=== PATIENT | female | born 1950 | race Caucasian/White ===

== ENCOUNTER → 2018-05-13 10:10 | Outpatient (CLI) | payer MEDICARE, SELFPAY ==
[2018-05-13 12:32] LABS: Anion Gap 6 (5-15); BUN 13 mg/dL (7-18); BUN/Creat Ratio 16.4 RATIO (10-20); Calcium,Total 8.4 mg/dL (8.5-10.1); Chloride 107 mmol/L (98-107); Cholesterol 162 mg/dL (200); Creatinine, Serum 0.79 mg/dL (0.55-1.02); EST Glomerular Filtration Rate 77 mL/min (>60); Est Glom Filt Rate - Afr Amer 93 mL/min (>60); Glucose 108 mg/dL (74-106); High Density Lipoprotein 36 mg/dL; Sodium Level 142 mmol/L (136-145); Thyroid Stim Hormone (TSH) 1.18 uIU/mL (0.358-3.74); Triglycerides 167 mg/dL; Very Low Density Lipoprotein 33 mg/dL (5-40)
[2018-05-13 12:39] LABS: Microalbumin,Random Urine 6.2 mg/L (NO RANGE EST.); Microalbumin:Creatinine Ratio 5.2 mg/g CRE (<30 mg/g CRE)
== END ==
PROVIDERS: Family Provider Family Medicine; PCP Family Medicine; Visit Provider Family Medicine
DX: I10 Essential (primary) hypertension (principal); E78.00 Pure hypercholesterolemia, unspecified
CPT/HCPCS: 36415; 80048; 80061; 82043; 82570; 84443

== ENCOUNTER → 2019-04-30 | Outpatient (CLI) | payer MEDICARE, SELFPAY ==
[2019-04-30 12:15] LABS: ALB/GLOB Ratio 1.1 RATIO (0.9-2.4); AST(SGOT) 19 U/L (15-37); Alanine Aminotransfer ALT/SGPT 33 U/L (13-56); Albumin, Serum 3.6 g/dL (3.2-5.0); Alkaline Phosphatase 95 U/L (45-117); Anion Gap 5 (5-15); BUN 15 mg/dL (7-18); BUN/Creat Ratio 18.3 RATIO (10-20); Calcium,Total 8.8 mg/dL (8.5-10.1); Chloride 107 mmol/L (98-107); Creatinine, Serum 0.82 mg/dL (0.55-1.02); EST Glomerular Filtration Rate 74 mL/min (>60); Est Glom Filt Rate - Afr Amer 89 mL/min (>60); Globulin 3.3 g/dL (2.2-4.2); Glucose 111 mg/dL (74-106); Potassium 3.9 mmol/L (3.5-5.1); Protein, Total 6.9 g/dL (6.4-8.2); Sodium Level 140 mmol/L (136-145)
== END | disposition home or self-care (01) ==
LOC: MFPLAB 09:29
PROVIDERS: Family Provider Family Medicine; PCP Family Medicine; Referring Provider Family Medicine; Visit Provider Family Medicine
DX: I10 Essential (primary) hypertension (principal)
CPT/HCPCS: 36415; 80053

== ENCOUNTER → 2019-11-25 09:30 | Outpatient (CLI) | payer MEDICARE, SELFPAY ==
[2019-11-25 10:30] LABS: Absolute Lymphocyte Count 2.18 X10^3/uL (0.83-4.51); Absolute Neutrophil Count 4.6 X10^3/uL (2.0-7.7); Basophil# 0.04 X10^3/uL; Basophil% 0.5 % (0-1); Eosinophils% 2.6 % (0-5); Hematocrit 52.4 % (37-47); Hemoglobin 17.2 g/dL (12.0-15.0); Lymphocyte # 2.18 X10^3/ul (4.0); Lymphocyte % 28.2 % (19-41); Mean Corp Hgb Conc 32.8 g/dL (32-36); Mean Corpuscular Hgb 32.2 pg (27.0-32.0); Mean Corpuscular Volume 98.1 fL (81-99); Mean Platelet Vol. 10.4 fl (6.2-12.0); Monocyte# 0.66 X10^3/uL; Monocyte% 8.5 % (0-10); NRBC Flagged by Analyzer 0 % (0-5); Neutrophil # 4.63 X10^3/uL (2.7-7.7); Neutrophil % 59.9 % (47-70); Platelet Count 159 K/mm3 (150-450); RBC Distribution Width CV 12.4 % (11.6-14.6); RBC Distribution Width SD 45.1 fl (35.1-43.9); Red Blood Count 5.34 M/mm3 (4.2-5.4); White Blood Count 7.7 K/mm3 (4.4-11.0)
[2019-11-25 10:58] LABS: ALB/GLOB Ratio 0.9 RATIO (0.9-2.4); AST(SGOT) 18 U/L (15-37); Alanine Aminotransfer ALT/SGPT 34 U/L (13-56); Albumin, Serum 3.4 g/dL (3.2-5.0); Alkaline Phosphatase 88 U/L (45-117); Anion Gap 5 (5-15); BUN 13 mg/dL (7-18); BUN/Creat Ratio 14.4 RATIO (10-20); Calcium,Total 9.4 mg/dL (8.5-10.1); Chloride 109 mmol/L (98-107); EST Glomerular Filtration Rate 66 mL/min (>60); Est Glom Filt Rate - Afr Amer 80 mL/min (>60); Globulin 3.9 g/dL (2.2-4.2); Glucose 118 mg/dL (74-106); Potassium 3.9 mmol/L (3.5-5.1); Protein, Total 7.3 g/dL (6.4-8.2); Sodium Level 142 mmol/L (136-145); T4 Free Direct 0.93 ng/dL (0.76-1.46); Thyroid Stim Hormone (TSH) 2.21 uIU/mL (0.358-3.74)
[2019-11-26 16:42] LABS: DHEA Sulfate 37.7 ug/dL (20.4-186.6)
== END ==
PROVIDERS: PCP Family Medicine; Referring Provider Family Medicine; Visit Provider Family Medicine
DX: E03.9 Hypothyroidism, unspecified (principal); R79.89 Other specified abnormal findings of blood chemistry; I10 Essential (primary) hypertension; Z72.0 Tobacco use
CPT/HCPCS: 36415; 80053; 82627; 84403; 84439; 84443; 85025; 82626

== ENCOUNTER → 2020-05-24 12:19 | Outpatient (CLI) | payer MEDICARE, SELFPAY ==
--- NOTE | 2020-05-24 12:28 | BD_ITS ---
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 COMPARISON: None. FINDINGS: Lumbar Spine (L1-L4): g/cm2 (0.998) / T-score (-1.4) / Z-score (0.2) Findings are suggestive of osteopenia with a low fracture risk. Left Femur Total: g/cm2 (0.956) / T-score (-0.4) / Z-score (1.0) Left Femoral Neck: g/cm2 (0.877) / T-score (-1.2) / Z-score (0.5) Right Femur Total: g/cm2 (0.967) / T-score (-0.3) / Z-score (1.1) Right Femoral Neck: g/cm2 (0.886) / T-score (-1.1) / Z-score (0.6) BD/Dexa Bone Density Study IMPRESSION: The patient is considered osteopenic as outlined below according to World Martin Organization (WHO) criteria with a low fracture risk. Reference Information: The T-score is the number of standard deviations above or below the standard which is normal for young adults at their peak bone mineral density. The World Health Organization (WHO) interprets the T-scores as follows: Above -1 Normal bone density Between -1 and -2.5 Osteopenia Equal to / or below -2.5 Osteoporosis As a practical clinical guideline, osteopenia may be graded as follows: Mild -1 through -1.5 Moderate -1.6 through -2.0 Severe -2.1 through -2.4 The Z-score is the number of standard deviations above or below age-matched controls. A Z-score of less than -1.5 would be considered abnormal. References: 1. NIH Osteoporosis and Related Bone Diseases http://www.osteo.org 2. International Society for Clinical Densitometry http://www.iscd.org 3. National Osteoporosis Foundation http://www.nof.org Electronically Signed: Luis Soler, at 8:45 EDT , Service support ,
--- NOTE | 2020-05-24 13:12 | CT_ITS ---
STUDY: LOW DOSE CT LUNG CANCER SCREENING REASON FOR EXAM: Female, 69 years old. TOBACCO USE, 1 PPD X 45 YRS. RADIATION DOSAGE (If Supplied By Facility): CTDIvol = ( 4.02 ) mGy, DLP = ( 127.37 ) mGycm TECHNIQUE: No contrast was administered. Low dose technique was utilized (average mAS-38 and kVp 120). 1.25 mm axial source images with a slice interval of 1.25-mm were reconstructed in lung windows. 2.5 mm axial source images with a slice interval of 2.5-mm were reconstructed in lung windows. 5.0 mm axial source images with a slice interval of 5.0-mm were reconstructed in soft tissue windows. Nodule measured using lung windows on PACS and/or independent workstation with automated measurement of minimum and maximum diameter. Nodule measurement reported as average diameter rounded to the nearest whole number. Growth is defined as an increase ins size of greater than 1.5 mm. COMPARISON: None. Emphysema: No suspicious nodules are seen. There is evidence of emphysematous changes with multiple bolus formation. The largest measures 4.7 cm x 9.2 cm and is within the right middle lobe Aorta: Atherosclerotic calcification of the aortic arch. Coronary arteries: Unremarkable Mediastinal nodes: Small mediastinal lymph nodes. Other chest and abdominal findings: CT/Low Dose CT Lung Screening IMPRESSION: Lung-RADS category 2 - Continue annual screening with LDCT in 12 months. IMPORTANT NOTES FOR USE: ACR Lung-RADS Version 1.0 Assessment Categories Release Date: February 08, 2014 Category: Coded 0-4 bases on nodule(s) with highest degree of suspicion. Negative screen is defined as categories 1 and 2; a positive screen is defined as categories 3 and 4. Category 3 and 4A nodules that are unchanged on interval CT should be coded as category 2, and individuals returned to screening in 12 months. Category 4X: Category 3 or 4 nodules with additional imaging findings that increase the suspicion of lung cancer, such as spiculation, GGN that doubles in size in 1 year, enlarged lymph notes, etc. Category Modifiers: S (significant finding unrelated to lung cancer) and C (prior history of treated lung cancer) may be added to the 0-4 Lung-RADS Electronically Signed: Luis Soler, at 14:24 EDT , Service support ,
== END ==
PROVIDERS: PCP Family Medicine; Referring Provider Family Medicine; Visit Provider Family Medicine
DX: Z00.00 Encounter for general adult medical examination without abnormal findings (principal); Z78.0 Asymptomatic menopausal state; Z87.891 Personal history of nicotine dependence
CPT/HCPCS: 77080; G0297

== ENCOUNTER → 2020-06-14 15:15 | Outpatient (CLI) | payer MEDICARE, SELFPAY ==
--- NOTE | 2020-06-14 15:38 | BI_ITS ---
MAMMOGRAPHY - BILATERAL SCREENING REASON FOR EXAM: Female, 69 years old. Routine annual screening examination. PERTINENT HISTORY: Sister with breast cancer. History of remote bilateral excisional breast biopsies. TECHNIQUE: Digital bilateral breast franci (3D mammographic acquisition) in the CC and MLO projections. 2-D mediolateral oblique (MLO) and craniocaudad (CC) views of both breasts were obtained. CAD: Full Field Digital Mammography with Computer Added Detection was performed. COMPARISON: No comparison mammograms available at this time. If any prior films become available, an addendum to this report can be generated. FINDINGS: Breast Composition: There are scattered areas of fibroglandular density. There are no dominant masses or suspicious calcifications. Small bilateral benign appearing axillary lymph nodes. No other significant abnormalities are identified. BI/SCREEN MAMM (CAD) W/FRANCI BILAT IMPRESSION: Negative screening mammogram. Yearly followup mammogram recommended. (A) ASSESSMENT CATEGORY: BIRADS Category 2: Benign. A letter regarding these results will be sent to the patient by the facility within 30 days. Approximately 10% of breast cancers are not detected by mammography. A normal mammogram should not delay biopsy of a clinically suspicious abnormality. [id number] Electronically Signed: Luis Soler, at 8:39 EDT , Service support ,
== END ==
PROVIDERS: PCP Family Medicine; Referring Provider Family Medicine; Visit Provider Family Medicine
DX: Z00.00 Encounter for general adult medical examination without abnormal findings (principal); Z12.31 Encounter for screening mammogram for malignant neoplasm of breast
CPT/HCPCS: 77063; 77067

== ENCOUNTER 2020-07-25 07:55 | Day surgery (SDC) | payer MEDICARE, SELFPAY ==
[2020-07-25] VITALS (7 sets, daily range): BP systolic 64–140; BP diastolic 37–90; PULSE 73–83; RESP 16–18; TEMP 36.1–36.6; O2SAT 90–95; BMI 38.0
[2020-07-25] MEDS: Lactated Ringers 1,000 ML 100 ML IV (08:38)
--- NOTE | 2020-07-25 09:00 | COLBX_PTH ---
PATIENT: BHANU RUBY LOC: EN U#:[id number] AGE/SX: 69/F ROOM: RE07/25/[address]: Dr. Morteza Cabral MD : 1950 BED: DIS: 07/25/2020 SPEC #: [id number] RECD: 07/25/20 11:52 STATUS: GERMAN REAle #: [id number] ANAYA: 07/25/20 09:[address]: Morteza Cabral DEPT: SURGICAL PATHOLOGY RECD BY: Lasahe Valdivia ENTERED: 07/25/20 12:17 SP TYPE: COLON BX OTHR DR: Dr. Guy Phoenix MD Tissues: A - Cecum, NOS B - Rectum, NOS Procedures: Surgery Specimen Level IV HEADER OPERATION: Colonoscopy - open access (MAC) PRE-OP DIAGNOSIS: Screening TISSUE SUBMITTED: A - Cecum polyp - snare and biopsy forceps, B - Rectal polyp biopsy MICROSCOPIC DIAGNOSIS A. Cecal polyp, biopsy: Fragments of tubular adenoma. B. Rectal polyp, biopsy: Fragments of hyperplastic polyp. AM:che 07/26/20 MICROSCOPIC DESCRIPTION Slides are reviewed. GROSS DESCRIPTION A - Received in fixative is one container labeled with the patient's name and designated cecal polyp. The specimen consists of multiple irregular fragments of light davies soft tissue that in aggregate measure 2 x 0.6 x 0.1 cm. The specimen is totally submitted in one cassette. B - Received in fixative is one container labeled with the patient's name and designated rectal polyp. The specimen consists of multiple irregular fragments of light davies soft tissue that in aggregate measure 1.2 x 0.3 x 0.1 cm. The specimen is totally submitted in one cassette. / AM:che 07/25/20 TC:5 CPT: 08648 x2
--- NOTE | 2020-07-25 09:04 | H&P.OPEN ---
History of Present Illness Date of Admission: 07/25/20 The patient is a 69 year old F who presents for screening colonoscopy. It is been 10 years since her last colonoscopy. This was done in [facility]. Past Medical/Surgical History - Planned Operation Planned Operative Procedure/s: cscope open access Date of Operative Procedure: 07/25/20 Permit Signed: No S.O.S: No Is This Patient Having a Total Joint: No - Previous Hospitalizations/Surgeries HX Hospitalizations: No HX of Surgeries: diag laparotomy. cscope Any Problems With Anesthesia: No You/Your Family Experience Fever (Hyperthermia) With Anes: No Cholinesterase deficiency: No - Cardiovascular Hx Chest Pain within Last 2 months: No Hx of Irregular Heartbeat and/or Afib: No Hx Heart Attack: No Hx Congestive Heart Failure: No Hx Rheumatic Fever: No Hx Hypertension: Yes - controlled with med Hx Internal Defibrillator: No Hx Pacemaker: No Hx Cardiac Catheterization: No Hx Cardiac Surgery/Stents/Etc.: No Hx Stress Test: No HX Edema: No Hx Pain in Legs when Walking/Leg Cramps: No - Respiratory Chronic Cough: No HX of Shortness of Breath: Yes - sob with 2 flights of stairs Hoarseness: No Hx Chronic Obstructive Pulmonary Disease (COPD): No Hx Asthma: No - patient is to follow with pulmonalogist Hx Emphysema: No Hx Sleep Apnea: No Hx Oxygen Use at Home: No Hx Respiratory Tract Infection/Cold (presently): No Do You Snore Loudly (louder than talking or can be heard): No Do You Often Feel Tired/ Fatigued/ Sleepy Dring Daytime?: Yes Has Anyone Observed You Stop Breathing During Sleep?: No Result (for STOP score): Positive Hx Smoking: Yes - 1ppd for 50 yrs Smoking Status: Current every day smoker - Gastrointestinal Hx Gastroesophageal Reflux: No Hx Gastrointestinal Disorders: No Hx Gastrointestinal Bleed: No Hx Ulcer: No Hx Hiatal Hernia: No Difficulty Chewing/Swallowing: No Recent Onset of Swallowing Problems: No Special diet followed at home: No Hx Unplanned Weight Loss of 20#: No HX Unplanned Weight Gain of 20#: No - Neurological Hx Seizures: No HX Syncope/Blackout Spells/Unconsciousness: No Hx CVA/Stroke: No Hx Transient Ischemic Attacks (TIA): No Hx Multiple Sclerosis: No Hx Parkinson's Disease: No Hx Head/Neck Injury: No Hx Headaches: No Hx Back Injury/Pain: No Recent Onset of Speech Difficulty: No Restless Legs: No Does patient have nerve stimulator: No Patient instructed to have device shut off: No Rep notified?: No - Blood Disorder Hx Leukemia: No Bleeding Tendencies: No Hx Deep Vein Thrombosis: No Hx High Cholesterol: Yes - on med Blood Transmitted Disease: No Hx Hepatitis: No Hx Cirrhosis: No Hx Anemia: No Hx Blood Disorders: No - Reproduction : No Is Patient Lactating: No Hx Hysterectomy: No Hx Tubal Ligation: No Are You Post Menopause: Yes - Genitourinary Hx Renal Disease: No - Musculoskeletal Hx Arthritis: No Hx Rheumatoid Arthritis: No Hx Gout: No Recent Onset of an Orthopedic Problem: No - Endocrine Hx Diabetes: No Thyroid Disease: Yes - on med Hx Steroid Therapy: No - Psycho/Social Hx Substance Use: No Hx Alcohol Use: Yes - occ Hx Anxiety: Yes - on med Hx Depression: Yes - on med Mental Illness: No Hx Dementia: No - Miscellaneous Hx Cancer: No Recent Exposure to Contagious Disease: No Active MRSA: No Hx of C-Diff: No Any Loose Teeth: No - implants Allergies Penicillins Allergy (Verified 07/25/20 08:21) Hives - Discharge Is Pt Admitted From a Care Home, or a Fdc: No After D/C, Where Do you Plan to Go: Return Home - From the PAT History Number of Risk Factors: 4 - Physical Exam Vitals/I&O's: Vital Signs Temp Pulse Resp BP Pulse Ox 97.8 F 83 18 140/90 H 93 07/25/20 08:23 07/25/20 08:23 07/25/20 08:23 07/25/20 08:23 07/25/20 08:23 Oxygen Delivery Method Room Air Weight: 207 lb 14.334 oz Body Mass Index (BMI) 38.0 General: Alert, Oriented x3 Lungs: Clear to auscultation Cardiovascular: Regular rate, Regular Rhythm, No murmurs Abdomen: Bowel Sounds Present, Soft, Non Tender, Non-Distended Current Medications Lactated Ringer's () 1,000 mls @ 100 mls/hr IV .Q10H ANTIONE Last Admin: 07/25/20 08:38 Dose: 100 mls/hr Documented by: Assessment/Plan Assessment: Screening colonoscopy Plan: We will do a colonoscopy Surgery Risks - Colonoscopy Risks Include but are not Limited To: Risks include but are not limited to: Bleeding, perforation requiring further surgery, inability to complete colonoscopy requiring barium enema.
--- NOTE | 2020-07-25 09:45 | OP.CCLET_ITS ---
07/25/2020 Guy Phoenix [address] [place] [address] Re : Colonoscopy procedure for Mariaelena Martinez Dear Dr. Phoenix This procedure was performed on Saturday, July 25, 2020. My impressions and recommendations are as follows: Impressions : - One 10 mm polyp in the cecum, removed with a hot snare. Resected and retrieved. - Two 2 to 5 mm polyps in the rectum, removed with a jumbo cold forceps. Resected and retrieved. - The examination was otherwise normal. Recommendations : - Discharge patient to home. - Resume previous diet. - Continue present medications. - Await pathology results. - Repeat colonoscopy in 3 years for surveillance of multiple polyps. She had quite a few diminutive polyps in the rectum that I am probably leaning on wanting to do a colonoscopy far sooner than 3 years maybe even in a year's time. - Return to my office in 1 week. My findings are described in the full procedure note, which is enclosed. If I can be of further assistance, please feel free to contact me at Doctor phone number(s): , Fax: [phone], Work: . Sincerely, MD Morteza Lerma MD 07/25/2020 9:44:40 AM This report has been signed electronically.
--- NOTE | 2020-07-25 09:45 | OP.COLON_ITS ---
Patient Name: Mariaelena Martinez Procedure Date: 07/25/2020 9:04 AM Date of : 1950 Age: 69 Procedure: Colonoscopy Indications: Screening for colorectal malignant neoplasm Providers: Morteza Cabral MD Referring MD: Guy Phoenix Medicines: See the Anesthesia note for documentation of the administered medications Patient Profile: This is a 69 year old female. Refer to note in patient chart for documentation of history and physical. Last Colonoscopy: more than 10 years ago. Complications: No immediate complications. Procedure: Pre-Anesthesia Assessment: - Prior to the procedure, a History and Physical was performed, and patient medications and allergies were reviewed. The patient's tolerance of previous anesthesia was also reviewed. The risks and benefits of the procedure and the sedation options and risks were discussed with the patient. All questions were answered, and informed consent was obtained. Prior Anticoagulants: The patient has taken no previous anticoagulant or antiplatelet agents. ASA Grade Assessment: II - A patient with mild systemic disease. After reviewing the risks and benefits, the patient was deemed in satisfactory condition to undergo the procedure. After I obtained informed consent, the scope was passed under direct vision. Throughout the procedure, the patient's blood pressure, pulse, and oxygen saturations were monitored continuously. The colonoscope was introduced through the anus and advanced to the cecum, identified by appendiceal orifice and ileocecal valve. The colonoscopy was performed without difficulty. The patient tolerated the procedure well. The quality of the bowel preparation was good. Scope In: 9:15:28 AM Scope Withdrawal Time 0 hours 18 minutes 54 seconds Scope Out: 9:36:39 AM Total Procedure Duration Time 0 hours 21 minutes 11 seconds Findings: A 10 mm polyp was found in the cecum. The polyp was sessile. The polyp was removed with a hot snare. Resection and retrieval were complete. Two sessile polyps were found in the rectum. The polyps were 2 to 5 mm in size. These polyps were removed with a jumbo cold forceps. Resection and retrieval were complete. The exam was otherwise without abnormality. Impression: - One 10 mm polyp in the cecum, removed with a hot snare. Resected and retrieved. - Two 2 to 5 mm polyps in the rectum, removed with a jumbo cold forceps. Resected and retrieved. - The examination was otherwise normal. Recommendation: - Discharge patient to home. - Resume previous diet. - Continue present medications. - Await pathology results. - Repeat colonoscopy in 3 years for surveillance of multiple polyps. She had quite a few diminutive polyps in the rectum that I am probably leaning on wanting to do a colonoscopy far sooner than 3 years maybe even in a year's time. - Return to my office in 1 week. Procedure Code(s): --- Professional --- 06646, Colonoscopy, flexible; with removal of tumor(s), polyp(s), or other lesion(s) by snare technique 28498, 59, Colonoscopy, flexible; with biopsy, single or multiple Diagnosis Code(s): --- Professional --- Z12.11, Encounter for screening for malignant neoplasm of colon D12.0, Benign neoplasm of cecum K62.1, Rectal polyp CPT copyright 2017 [employer]. All rights reserved. The codes documented in this report are preliminary and upon barrel and receiver aligner review may be revised to meet current compliance requirements. MD Morteza Lerma MD 07/25/2020 9:44:40 AM This report has been signed electronically. Number of Addenda: 0 Note Initiated On: 07/25/2020 9:04 AM
== END 2020-07-25 10:23 | disposition home or self-care (01) ==
LOC: EN 07:56 → AC 07:56
PROVIDERS: Anesthesiology; PCP Family Medicine; Referring Provider Family Medicine; Visit Provider Surgery
PROC: 0DJD8ZZ Inspection of Lower Intestinal Tract, Via Natural or Artificial Opening Endoscopic (ICD-10-PCS; CPT 45378; principal; 2020-07-25 08:55)
DX: Z12.11 Encounter for screening for malignant neoplasm of colon (principal); D12.0 Benign neoplasm of cecum; K62.1 Rectal polyp; Z11.59 Encounter for screening for other viral diseases; I10 Essential (primary) hypertension; E06.9 Thyroiditis, unspecified; F41.9 Anxiety disorder, unspecified; F32.9 Major depressive disorder, single episode, unspecified; E78.00 Pure hypercholesterolemia, unspecified; Z78.0 Asymptomatic menopausal state; Z79.82 Long term (current) use of aspirin; Z79.899 Other long term (current) drug therapy; F17.200 Nicotine dependence, unspecified, uncomplicated
CPT/HCPCS: 45380; 45385; 87635; 88305; C9803; J7120; J2405; U0003

== ENCOUNTER → 2020-11-15 12:48 | Outpatient (CLI) | payer MEDICARE, SELFPAY ==
[2020-09-01 10:49] VITALS: BMI 38.1
--- NOTE | 2020-11-16 05:49 | PFTCOMP ---
COMPLETE PULMONARY FUNCTION TEST INTERPRETATION Brief HPI: Patient is a 70 year old female, currently under the care of myself, who presents to [facility] for complete pulmonary function tests secondary to diagnosis of emphysema. Respiratory therapist reports good effort and reproducible results. Interpretation: Forced expiration spirometry shows a mild large airways obstructive ventilatory defect with an FEV1 of 75% predicted. There is a significant bronchodilator response in FVC and FEV1 by strict ATS criteria. Spirograms are of good quality and plateau slowly, indicating slowly emptying areas of the lungs. The respiratory flow volume loop shows decreased expiratory flow rates at all lung volumes consistent with airway obstruction. Lung volumes by body plethysmography show an elevated total lung capacity at 5.39 L, 122% predicted. FRC and RV are elevated out of proportion. Lung volume measurements are consistent with hyperinflation and air-trapping. Diffusion capacity by carbon monoxide is preserved at 87% predicted. The airway resistance is elevated. No previous pulmonary function tests were available for review. Impression: Partially reversible mild large airways obstructive ventilatory defect resulting in air trapping with hyperinflation, and a pattern consistent with COPD/asthma overlap syndrome
== END ==
PROVIDERS: PCP Family Medicine; Referring Provider Internal Medicine Critical Care Medicine; Visit Provider Internal Medicine Critical Care Medicine
DX: J43.9 Emphysema, unspecified (principal)
CPT/HCPCS: 94060; 94726; 94729

== ENCOUNTER → 2020-11-17 13:44 | Outpatient (CLI) | payer MEDICARE, SELFPAY ==
[2020-09-01 10:49] VITALS: BMI 38.1
[2020-11-17 13:45] VITALS: PULSE 74; PULSE 83; PULSE 87; PULSE 88; PULSE 89; PULSE 90; O2SAT 87; O2SAT 90; O2SAT 91; O2SAT 92; O2SAT 93
--- NOTE | 2020-11-17 14:20 | CPS ---
Test was initiated on RA. After one minute patients oxygen saturations dropped to 87%, therefore oxygen was started on 2L. After recovery time patients oxygen sat's increased to 93%. Oxygen saturations were maintained 90% and greater for the remainder of the test on 2L.
--- NOTE | 2020-11-17 14:46 | PCM.PSN.6M ---
PSN 6 Minute Walk Test - 6 Minute Walk Test 6 Minute Walk Test: 6 Minute Walk Test PSN:6-Minute Walk Test Start: 11/17/20 14:15 Freq: Status: Active Protocol: [id number].6MINW Document 11/17/20 13:45 (Rec: 11/17/20 14:23 [id number]) 6 Minute Walk Test Date Performed 11/17/20 Time Performed 13:45 Height 5 ft 2 in Weight: 81.647 kg Weight in Pounds 180.[address]: Guillermo Griffin Assistive device used: None Pre-test Oxygen Delivery Method Room Air Pulse Ox (%) 91 Pulse Rate (60-100 beats/min) 74 Dyspnea Brook Scale (0-10) 0 Exertion Brook Scale (6-20) 6 1st minute Oxygen Flow Rate (L/min) (L/min) 2 Oxygen Delivery Method Nasal Cannula Pulse Ox (%) 87 Pulse Rate (60-100 beats/min) 89 2nd minute Oxygen Flow Rate (L/min) (L/min) 2 Oxygen Delivery Method Nasal Cannula Pulse Ox (%) 91 Pulse Rate (60-100 beats/min) 87 3rd minute Oxygen Flow Rate (L/min) (L/min) 2 Oxygen Delivery Method Nasal Cannula Pulse Ox (%) 91 Pulse Rate (60-100 beats/min) 88 Number of Rests Taken 1 4th minute Oxygen Flow Rate (L/min) (L/min) 2 Oxygen Delivery Method Nasal Cannula Pulse Ox (%) 92 Pulse Rate (60-100 beats/min) 89 5th minute Oxygen Flow Rate (L/min) (L/min) 2 Oxygen Delivery Method Nasal Cannula Pulse Ox (%) 90 Pulse Rate (60-100 beats/min) 90 6th minute Oxygen Flow Rate (L/min) (L/min) 2 Oxygen Delivery Method Nasal Cannula Pulse Ox (%) 92 Pulse Rate (60-100 beats/min) 90 Post-test Oxygen Flow Rate (L/min) (L/min) 2 Oxygen Delivery Method Nasal Cannula Pulse Ox (%) 93 Pulse Rate (60-100 beats/min) 83 Dyspnea Brook Scale (0-10) 1 Exertion Brook Scale (6-20) 14 Full Laps Walked 10 Partial Lap, Number of Tiles Walked 4 Total Distance Walked (ft) 594 11/17/20 14:20 Cardiopulmonary Services by Shawn,Hope Test was initiated on RA. After one minute patients oxygen saturations dropped to 87%, therefore oxygen was started on 2L. After recovery time patients oxygen sat's increased to 93%. Oxygen saturations were maintained 90% and greater for the remainder of the test on 2L. Initialized on 11/17/20 14:20 - END OF NOTE - Interpretation Interpretation: The patient was noted to be 91% on room air at rest. However, patient desaturated to 87% in the first minute of ambulation. Patient was placed on 2 L nasal cannula with improvement to 93%. The patient then missed ambulating a total of 594 feet over the course of 6 minutes with no assistive devices and 2 breaks. These findings are consistent with a respiratory limitation exercise tolerance. - Recommendations Recommendations: The patient requires no supplemental oxygen at rest, but should be using 2 L nasal cannula with any exertion.
== END ==
PROVIDERS: PCP Family Medicine; Referring Provider Internal Medicine Critical Care Medicine; Visit Provider Internal Medicine Critical Care Medicine
DX: J43.9 Emphysema, unspecified (principal)
CPT/HCPCS: 94618

== ENCOUNTER 2020-12-13 14:28 | Emergency (ER) | payer MEDICARE, SELFPAY ==
[2020-11-25 12:39] VITALS: BMI 38.7
[2020-12-13 14:29] VITALS: BP 175/110; PULSE 76; RESP 16; TEMP 36.3; O2SAT 91; BMI 36.6
--- NOTE | 2020-12-13 14:50 | ED.VISSUMM ---
- ER Visit Summary Date of Service: 12/13/20 Chief Complaint: Left buttock and sciatica pain. Also elevated blood pressure. History of Present Illness: The patient is a [address] of hypertension, COPD and hypothyroidism. Patient states that on Saturday she slipped in the bathtub went down about a foot and has had left buttock pain since that time. She is able to ambulate. At times the pain radiates down her leg. She said a day or 2 before that she wrenched her back. She has had sciatica on one time in the past. She denies leg weakness or numbness. She does not think she broke anything with the fall. She denies any numbness. No bowel or bladder incontinence. No back pain. Also today her blood pressure was elevated. She is treated for hypertension and took an extra labetalol. She denies any other complaints. She has had no recent illness. Physical Examination: Well-appearing older female accompanied by family. Vital signs are stable her pressure is elevated at 175/110. H EENT exam unremarkable atraumatic. Neck nontender. Lungs clear to auscultation bilaterally. Heart regular rhythm no murmur. Abdomen soft nontender normal bowel sounds no peritoneal signs. Patient moving all 4 extremities. 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 Dorsi plantarflexion intact. Normal touch sensation. Normal flexion-extension of both hips. No shortening or rotation. Normal motor strength. Normal sensation. Lumbar spine nontender. Minimal tenderness of the left SI joint. Negative straight leg raise. Neurologically she is awake and alert with no focal motor deficits. No foot drop. No signs of cauda equina. Normal medial thigh sensation. No saddle anesthesia. Test Results: Left hip and pelvis x-ray 3 views interpreted by myself shows no acute injury. No fracture or dislocation. Also read by the radiologist who agrees. Emergency Department Course and Treatment: [place] for pain. Blood pressure will be reassessed. We will repeat exam is doing well. Again the left foot is neurovascularly intact. Patient I discussed giving her a walker to be discharged home she did not want that. Most recent blood pressure is 141/80 prior to that is 151/86. Treatment Plan: Limited [place] for pain 10 no refill. Continue her current blood pressure medications. Log her blood pressures and follow-up with her primary care physician Dr. Guy Phoenix. Disposition: Discharge Impression: Recent fall Acute left hip and buttock pain / contusion Acute on chronic hypertension This note was generated with [employer]erts dictation software. It may contain incorrect words, spelling, and punctuation that were not noted in review of the chart prior to signing ED Disposition - Plan for ED Patient: Referrals: Guy Phoenix MD [Primary Care Provider] -
[2020-12-13] MEDS: HYDROcodone Bitartrate/Apap 5/325 Tablet PO (14:55)
--- NOTE | 2020-12-13 14:55 | RAD_ITS ---
STUDY: X-RAY - PELVIS AND LEFT HIP REASON FOR EXAM: Female, 70 years old. Fall and left sciatic pain TECHNIQUE: 3 views of the pelvis and hip. COMPARISON: None. FINDINGS: There is a non-specific bowel gas pattern. Normal visualized soft tissue structures. Normal bilateral iliac wings, sacroiliac joints and visualized sacrum. Normal bilateral superior and inferior pubic rami. Normal pubic symphysis. Normal bilateral ischial tuberosities. Normal visualized femoral head. Normal acetabulum. Normal hip joint. RAD/HIP, UNI W/ Pelvis 2-3 Views IMPRESSION: Normal x-ray examination of the pelvis and hip. Electronically Signed: Luis Soler MD at 15:17 EST , Service support ,
[2020-12-13 15:16] VITALS: BP 151/86; PULSE 74; RESP 14; O2SAT 97
--- NOTE | 2020-12-13 15:38 | DCINST.ED_ITS ---
ED Disposition - Plan for ED Patient: Disposition: Home or Assisted Living Instructions: ED Contusion, Lower Extremity, ED Hypertension, Established Prescriptions: Hydrocodone Bitart/Apap 5-325 [[place] 5MG-325MG] 1 tab PO Q4H PRN PRN 3 Days #12 tab PRN Reason: Pain Prescription Printed Referrals: Guy Phoenix MD [Primary Care Provider] - 1 Week Additional Instructions: Limited [place] for back and buttock pain. Continue taking your normal blood pressure medication. Log your blood pressures at least twice daily once in the morning and once in the evening when you are relaxed. Follow-up your primary care physician Dr. Guy Phoenix and show him your blood pressure readings over the next week. He and you can decide on how to adjust her medications. If your left hip is not getting better he may need to do also further imaging of your back
[2020-12-13 15:51] VITALS: BP 141/80; PULSE 82; RESP 15; O2SAT 95
== END 2020-12-13 15:52 | disposition home or self-care (01) ==
PROVIDERS: Emergency Provider Emergency Medicine; PCP Family Medicine
DX: S70.02XA Contusion of left hip, initial encounter (principal); M54.32 Sciatica, left side; W18.2XXA Fall in (into) shower or empty bathtub, initial encounter; Y93.9 Activity, unspecified; Y92.9 Unspecified place or not applicable; I10 Essential (primary) hypertension; E03.9 Hypothyroidism, unspecified; J44.9 Chronic obstructive pulmonary disease, unspecified; E78.00 Pure hypercholesterolemia, unspecified; Z79.899 Other long term (current) drug therapy; Z87.891 Personal history of nicotine dependence
CPT/HCPCS: 73502; 99283

== ENCOUNTER → 2020-12-22 12:22 | Outpatient (CLI) | payer MEDICARE, SELFPAY ==
[2020-12-13 14:29] VITALS: BMI 36.6
[2020-12-22 15:10] LABS: Basophil# 0.04 X10^3/uL; Basophil% 0.3 % (0-1); Eosinophil# 0.11 X10^3/uL; Eosinophils% 0.9 % (0-5); Hematocrit 49.4 % (37-47); Hemoglobin 16.1 g/dL (12.0-15.0); Lymphocyte % 24.9 % (19-41); Mean Corp Hgb Conc 32.6 g/dL (32-36); Mean Corpuscular Volume 98.2 fL (81-99); Mean Platelet Vol. 10.3 fl (6.2-12.0); Monocyte# 0.83 X10^3/uL; Monocyte% 6.9 % (0-10); NRBC Flagged by Analyzer 0 % (0-5); Neutrophil # 8.02 X10^3/uL (2.7-7.7); Neutrophil % 66.7 % (47-70); Platelet Count 228 K/mm3 (150-450); RBC Distribution Width CV 12.6 % (11.6-14.6); RBC Distribution Width SD 45.7 fl (35.1-43.9); Red Blood Count 5.03 M/mm3 (4.2-5.4)
[2020-12-22 15:53] LABS: ALB/GLOB Ratio 0.9 RATIO (0.9-2.4); AST(SGOT) 16 U/L (15-37); Alanine Aminotransfer ALT/SGPT 31 U/L (13-56); Albumin, Serum 3.6 g/dL (3.2-5.0); Alkaline Phosphatase 94 U/L (45-117); Anion Gap 7 (5-15); BUN 20 mg/dL (7-18); BUN/Creat Ratio 24.3 RATIO (10-20); Calcium,Total 9.1 mg/dL (8.5-10.1); Chloride 105 mmol/L (98-107); Creatinine, Serum 0.82 mg/dL (0.55-1.02); EST Glomerular Filtration Rate 73 mL/min (>60); Est Glom Filt Rate - Afr Amer 88 mL/min (>60); GGTP 23 U/L (5-55); Globulin 3.9 g/dL (2.2-4.2); Glucose 102 mg/dL (74-106); Potassium 4.1 mmol/L (3.5-5.1); Protein, Total 7.5 g/dL (6.4-8.2); Sodium Level 139 mmol/L (136-145)
== END ==
PROVIDERS: PCP Family Medicine; Referring Provider Family Medicine; Visit Provider Family Medicine
DX: M54.5 Low back pain (principal)
CPT/HCPCS: 36415; 80053; 82977; 85025

== ENCOUNTER → 2021-03-16 10:56 | Outpatient (CLI) | payer MEDICARE, SELFPAY ==
[2021-01-27 10:47] VITALS: BMI 38.2
--- NOTE | 2021-03-16 10:59 | MRI_ITS ---
STUDY: MRI LUMBAR SPINE WITHOUT CONTRAST REASON FOR EXAM: Female, 70 years old. continued back pain on activity despite PT, better if sitting, wo TECHNIQUE: Standardized fat and water weighted pulse sequences were obtained in the sagittal and axial planes. COMPARISON: None FINDINGS: T12-L1: Normal endplates. Normal disc height, hydration and morphology. Normal bilateral facet joints. Normal central canal and bilateral lateral recesses. Normal bilateral intervertebral neural foramina. Normal lumbar lordosis. There is no substantial scoliosis. Normal conus medullaris that terminates at the T12. L1-2: Normal endplates. Normal disc height, hydration and morphology. Normal bilateral facet joints. Normal central canal and bilateral lateral recesses. Normal bilateral intervertebral neural foramina. L2-3: Mild bilobed disc protrusion with an inferiorly extending small left paracentral disc extrusion produces mild spinal stenosis, mild right lateral recess stenosis, moderate left lateral recess stenosis with abutment of the left L3 nerve root and mild bilateral neural foraminal stenosis. L3-4: Mild bilateral facet hypertrophy and moderate ligament flavum hypertrophy. Moderate broad disc protrusion produces moderate spinal stenosis with moderate bilateral lateral recess stenosis with abutment of the L4 nerve roots bilaterally and moderate bilateral neural foraminal stenosis with abutment of the exiting L3 nerve roots bilaterally. L4-5: 2 mm retrolisthesis of L4 and L5 with a mild broad disc protrusion produces mild spinal stenosis and mild bilateral neural foraminal stenosis. L5-S1: Normal endplates. Normal disc height, hydration and morphology. Normal bilateral facet joints. Normal central canal and bilateral lateral recesses. Normal bilateral intervertebral neural foramina. Normal visualized sacral ala. Normal visualized paraspinous soft tissue structures. MRI/Spine Lumbar (Routine) IMPRESSION: Multilevel degenerative changes, as described above. Electronically Signed: Derrick Whelan MD at 13:26 EDT Tel , Service support ,
== END ==
PROVIDERS: PCP Family Medicine; Referring Provider Family Medicine; Visit Provider Family Medicine
DX: M54.16 Radiculopathy, lumbar region (principal)
CPT/HCPCS: 72148

== ENCOUNTER → 2021-04-28 16:52 | Outpatient (CLI) | payer MEDICARE, SELFPAY ==
[2021-04-12 13:27] VITALS: BMI 38.2
--- NOTE | 2021-04-28 11:54 | EKG12_ITS ---
Test Reason : PREOP Blood Pressure : / mmHG Vent. Rate : 070 BPM Atrial Rate : 070 BPM P-R Int : 158 ms QRS Dur : 068 ms QT Int : 394 ms P-R-T Axes : 067 076 075 degrees QTc Int : 425 ms Normal sinus rhythm Normal ECG Confirmed by PAUL LECHUGA, TAWNY ([id number]), editorial clerk JOB GOLDEN ([id number]) on 05/01/2021 9:48:37 AM Referred By: Kyle Robertson Confirmed By:MARTY MILLER MD
[2021-04-28 13:28] LABS: Hematocrit 50.2 % (37-47); Hemoglobin 16.8 g/dL (12.0-15.0); Mean Corp Hgb Conc 33.5 g/dL (32-36); Mean Corpuscular Hgb 32.7 pg (27.0-32.0); Mean Corpuscular Volume 97.9 fL (81-99); Mean Platelet Vol. 10.3 fl (6.2-12.0); Platelet Count 187 K/mm3 (150-450); RBC Distribution Width SD 43.9 fl (35.1-43.9); Red Blood Count 5.13 M/mm3 (4.2-5.4); White Blood Count 8.6 K/mm3 (4.4-11.0)
[2021-04-28 13:29] LABS: Absolute Lymphocyte Count 1.98 X10^3/uL (0.83-4.51); Absolute Neutrophil Count 5.7 X10^3/uL (2.0-7.7); Basophil# 0.04 X10^3/uL; Basophil% 0.5 % (0-1); Eosinophils% 1.2 % (0-5); Hematocrit 50.2 % (37-47); Hemoglobin 16.3 g/dL (12.0-15.0); Lymphocyte # 1.98 X10^3/ul (0.83-4.51); Lymphocyte % 23.5 % (19-41); Mean Corp Hgb Conc 32.5 g/dL (32-36); Mean Corpuscular Hgb 32.1 pg (27.0-32.0); Mean Corpuscular Volume 98.8 fL (81-99); Mean Platelet Vol. 10.7 fl (6.2-12.0); Monocyte% 7.1 % (0-10); NRBC Flagged by Analyzer 0 % (0-5); Neutrophil # 5.67 X10^3/uL (2.7-7.7); Neutrophil % 67.3 % (47-70); Platelet Count 181 K/mm3 (150-450); RBC Distribution Width CV 11.9 % (11.6-14.6); RBC Distribution Width SD 43.9 fl (35.1-43.9); Red Blood Count 5.08 M/mm3 (4.2-5.4); White Blood Count 8.4 K/mm3 (4.4-11.0)
[2021-04-28 14:02] LABS: Anion Gap 6 (5-15); BUN 12 mg/dL (7-18); BUN/Creat Ratio 14.6 RATIO (10-20); Calcium,Total 9.1 mg/dL (8.5-10.1); Chloride 108 mmol/L (98-107); Creatinine, Serum 0.82 mg/dL (0.55-1.02); EST Glomerular Filtration Rate 73 mL/min (>60); Est Glom Filt Rate - Afr Amer 88 mL/min (>60); Glucose 110 mg/dL (74-106); Magnesium 2.3 mg/dL (1.6-2.6); Sodium Level 141 mmol/L (136-145); Thyroid Stim Hormone (TSH) 1.67 uIU/mL (0.358-3.74)
[2021-04-28 14:18] LABS: HIV - WCH Non-Reactive (Nonreactive)
[2021-04-30 09:08] LABS: HEPATITIS B SURFACE AG Negative (Negative); Hepatitis A AB, Total Negative (Negative); Hepatitis A IgM Antibody Negative (Negative); Hepatitis B Core AB IgM Negative (Negative); Hepatitis B Core Ab Total Negative (Negative); Hepatitis C Ab <0.1 s/co ratio (0.0-0.9)
[2021-04-30 13:06] LABS: Hep B Surface Antibodies Non Reactive (.)
--- NOTE | 2021-05-08 10:18 | PCM.HP.BLA ---
History and Physical Date of Admission: 05/09/21 [facility] [id number] [phone] OFFICE VISITDate of Service: 05/01/21 MR#:[id number]:[id number]: MARIAELENA RUBYRep #:[id number] Provider:Dr. Kyle Robertson DOAge/Sex: 70/F Location:[place]:Signed Intake Intake Visit Reasons: lumbar spine Is patient in pain?: Yes Allergies Penicillins Allergy (Verified 05/01/21 14:36) Hives [facility] Medical History (Updated 04/26/21 @ 10:43 by Katey Ravi) Alcohol use Ambulates with cane Anxiety Asthma COPD (chronic obstructive pulmonary disease) Dental root implant present Depression Emphysema of lung Hearing loss High cholesterol Injury of back On home oxygen therapy Shortness of breath on exertion Smoker Thyroid disease Wears glasses Surgical History (Updated 04/26/21 @ 10:43 by Katey Ravi) History of colonoscopy No pertinent past surgical history Family History (Updated 04/12/21 @ 13:40 by Diana Roblero) Sister Cancer Breast Father Hypertension Social History (Updated 04/12/21 @ 13:41 by Diana Roblero) household members: spouse Smoking Status: Light Smoker (<10/day) Tobacco: How many years used: 45 alcohol intake: current alcohol intake frequency: a few times a week what type of physical activity do you participate in: none do you feel safe at home: Yes HPI lumbar spine Details: Parts of this documentation were recorded by a scribe, this documentation accurately reflects the service provided and the decisions made by me, Dr. Kyle Robertson, 05/01/21 [id number]. MARIAELENA RUBY is a 70 year old F here today for her preop appointment. Patient states that she continues to have low back pain. She denies any changes in her symptoms since her last appointment. Patient would like to continue with surgery. Mariaelena returns for follow-up for her preop prior to her surgery next week. She is scheduled for a lumbar laminectomy L3-4 on the left side for presumptive L4 radiculopathy. Her anterior quad wasting is about the same as it was on the left as compared to the right. I explained to her that her back pain even though is mostly left-sided I still is a product of multilevel degeneration. I explained her there is nothing we can do about that. The idea is to decompress the L4 nerve root and make it where the quads do not continue to waste on the left side and that helps her pain in her leg. It is not designed so much to help her back pain as it is simply too degenerated for that kind of change. She understands that I answered all her questions. We spoke a possible risks and complications associated with the surgery including possibility of , paralysis infection meningitis dural leak failed to relieve symptoms blood clot in the legs blood clot in lungs microinfarction stroke stroke among others. I answered all her questions I will see her again at surgery next week. ROS Musc Reports back pain and Reports radiating pain into limb Skin/Breast Reports system reviewed and no additional complaints, except as documented Neuro Yes system reviewed and no additional complaints, except as documented Coding Level of Care Code Off vis,est,level 2 Diagnoses HNP (herniated nucleus pulposus), lumbar M51.26 Time Spent (min) 20 Assessment and Plan Assessment and Plan (1) HNP (herniated nucleus pulposus), lumbar: Status: Acute Medications: New: hydrocodone-acetaminophen 7.5-325 mg 1 TAB PO Q6H 10 days PRN 40 tabs 0RF pain Plan Details Other Medications: New: [Handicap placard] As directed 1 ea 0RF one year lorazepam 1 mg PO TID 2 days PRN 6 tabs 0RF anxiety
[2021-05-09 06:30] VITALS: BP 133/79; PULSE 69; RESP 28; TEMP 36.1; O2SAT 87; BMI 37.0
[2021-05-09 06:46] LABS: Bedside Glucose 106 mg/dL (70-110)
--- NOTE | 2021-05-09 06:48 | RAD_ITS ---
EXAM: XR CHEST, 2 VIEWS : 1950 CLINICAL INDICATION: wheezes TECHNIQUE: Frontal and lateral views of the chest. This report was created using inDegree report generation technology. COMPARISON: Chest CT from 05/24/20 FINDINGS: LUNGS AND PLEURAL SPACES: Multiple thin-walled cystic areas in the pulmonary parenchyma bilaterally consistent with the prior chest CT. No pneumothorax. No effusion. HEART: Unremarkable. Cardiac silhouette not enlarged. MEDIASTINUM: Central airways and mediastinal contour are unremarkable. BONES/JOINTS: Degenerative changes of the spine. SOFT TISSUES: Unremarkable. RAD/Chest PA and Lateral IMPRESSION: No acute findings in the chest. Multiple thin-walled cystic areas in the pulmonary parenchyma bilaterally consistent with the prior chest CT. at 0755 Reported and signed by: Vic Landon MD Electronically Signed: Vic Landon MD at 7:55 EDT Tel , Service support ,
[2021-05-09 07:05] LABS: Allen Test Positive; Base Excess 2 mmol/L (-2 to +2); Blood Gas Specimen Type ART; O2 Delivery Device Room Air; PO2 69 mmHG (75-100); SITE R Brach; SO2 94 % (95-99); Total Carbon Dioxide 27 mmol/L; pCO2 38.2 mmHg (35-45); pH 7.44 (7.35-7.45)
[2021-05-09 07:07] VITALS: PULSE 68; RESP 18; O2SAT 91
[2021-05-09] MEDS: Ipratropium/Albuterol Sulfate 3 ML AMPUL.NEB INHALATION (07:07)
[2021-05-09] MEDS: Acetaminophen 500 MG Tablet 1000 MG PO (07:10)
--- NOTE | 2021-05-09 07:55 | SUR.PREOP ---
Dr Frankel and Dr Robertson spoke, pt will be cancelled based on ABG results and lung history. Dr Robertson will inform pt and form plan for future.
== END ==
LOC: SDC 05-09 06:01 → PAT 05-23 16:52
PROVIDERS: Anesthesiology; PCP Family Medicine; Referring Provider Orthopaedic Surgery; Visit Provider Orthopaedic Surgery
DX: Z01.818 Encounter for other preprocedural examination (principal); R06.2 Wheezing
CPT/HCPCS: 36415; 36600; 71046; 80048; 82803; 82962; 83735; 84443; 85025; 85027; 86703; 86704; 86705; 86706; 86708; 86709; 86803; 87081; 87340; 93005; 94640; J7120

== ENCOUNTER → 2021-06-09 14:54 | Outpatient (CLI) | payer MEDICARE, SELFPAY ==
--- NOTE | 2021-06-09 15:04 | CT_ITS ---
History: smoker Tgt; 40 pack years Low dose CT Chest: Comparison: May 24, 2020 Technique: 1.[address] imaging of the chest performed with low dose technique without contrast. Sagital and coronal reformatted images also obtained and reviewed. Findings: Large bullous changes noted within both lungs. No evidence of lung mass or pulmonary nodule. Linear scarring again noted at the right lung base Heart is normal size. Mild coronary artery calcification. No aortic aneurysm. No mediastinal or hilar lymphadenopathy. No osseous abnormality. CT/Low Dose CT Lung Screening IMPRESSION: Stable bullous changes of the lungs. No evidence of lung mass or suspicious nodule. Lung RADS category 1. Annual screening advised. Individualized dose optimization techniques were used for this CT. at 1643 Reported and signed by: Adithya Arceo MD Electronically Signed: Adithya Arceo MD at 16:42 EDT Tel , Service support ,
== END ==
PROVIDERS: PCP Family Medicine; Visit Provider Nurse Practitioner Acute Care
DX: F17.210 Nicotine dependence, cigarettes, uncomplicated (principal)
CPT/HCPCS: 71271

== ENCOUNTER → 2021-06-28 20:00 | Outpatient (CLI) | payer MEDICARE, SELFPAY | PROVIDERS: PCP Family Medicine; Visit Provider Nurse Practitioner Acute Care | DX: G47.33 Obstructive sleep apnea (adult) (pediatric) (principal) | CPT/HCPCS: 95811 ==

== ENCOUNTER → 2021-07-26 12:09 | Outpatient (CLI) | payer MEDICARE, SELFPAY | PROVIDERS: PCP Family Medicine; Visit Provider Nurse Practitioner Acute Care | DX: Z46.89 Encounter for fitting and adjustment of other specified devices (principal) ==

== ENCOUNTER → 2021-08-24 13:00 | Outpatient (CLI) | payer MEDICARE, SELFPAY | PROVIDERS: PCP Family Medicine; Referring Provider Nurse Practitioner Acute Care; Visit Provider Nurse Practitioner Acute Care | DX: G47.33 Obstructive sleep apnea (adult) (pediatric) (principal) | CPT/HCPCS: 98960; G0463 ==

== ENCOUNTER 2022-01-04 05:30 | Day surgery (SDC) | payer MEDICARE, SELFPAY ==
--- NOTE | 2021-12-26 13:02 | EKG12_ITS ---
Test Reason : PREOP Blood Pressure : / mmHG Vent. Rate : 068 BPM Atrial Rate : 068 BPM P-R Int : 178 ms QRS Dur : 078 ms QT Int : 378 ms P-R-T Axes : 082 084 087 degrees QTc Int : 401 ms Normal sinus rhythm Normal ECG Confirmed by STEPHY LECHUGA, NELSON ([id number]), editorial director JOB GOLDEN ([id number]) on 12/28/2021 10:09:13 AM Referred By: Kyle Robertson Confirmed By:NELSON KEYES MD
[2021-12-26 14:27] LABS: Absolute Neutrophil Count 5.1 X10^3/uL (2.0-7.7); Basophil# 0.06 X10^3/uL; Basophil% 0.7 % (0-1); Eosinophil# 0.17 X10^3/uL; Hematocrit 46.5 % (37-47); Hemoglobin 15.9 g/dL (12.0-15.0); Lymphocyte % 28.2 % (19-41); Mean Corp Hgb Conc 34.2 g/dL (32-36); Mean Corpuscular Hgb 33.5 pg (27.0-32.0); Mean Corpuscular Volume 97.9 fL (81-99); Mean Platelet Vol. 10.2 fl (6.2-12.0); Monocyte# 0.77 X10^3/uL; Monocyte% 9.1 % (0-10); NRBC Flagged by Analyzer 0 % (0-5); Neutrophil # 5.07 X10^3/uL (2.7-7.7); Neutrophil % 59.6 % (47-70); Platelet Count 187 K/mm3 (150-450); RBC Distribution Width CV 12.4 % (11.6-14.6); RBC Distribution Width SD 44.7 fl (35.1-43.9); Red Blood Count 4.75 M/mm3 (4.2-5.4); White Blood Count 8.5 K/mm3 (4.4-11.0)
[2021-12-26 14:56] LABS: Anion Gap 2 (5-15); BUN 13 mg/dL (7-18); BUN/Creat Ratio 16.1 RATIO (10-20); Chloride 106 mmol/L (98-107); Creatinine, Serum 0.81 mg/dL (0.55-1.02); EST Glomerular Filtration Rate 75 mL/min (>60); Est Glom Filt Rate - Afr Amer 90 mL/min (>60); Glucose 99 mg/dL (74-106); Potassium 3.9 mmol/L (3.5-5.1); Sodium Level 140 mmol/L (136-145)
[2021-12-26 15:25] LABS: Magnesium 2.2 mg/dL (1.6-2.6)
[2021-12-26 15:43] LABS: HIV - WCH Non-Reactive (Nonreactive); Hepatitis B Surface Antibody Non-Reactive; Hepatitis C Antibody Non-Reactive (Nonreactive)
[2021-12-28 08:34] LABS: Hepatitis A AB, Total Negative (Negative)
--- NOTE | 2022-01-03 13:59 | PCM.HP.BLA ---
History and Physical Date of Admission: 01/04/22 [facility] [id number] [phone] OFFICE VISITDate of Service: 04/12/21 MR#:[id number]:[id number]: BHANU RUBY ARep #:[id number] Provider:Dr. Kyle Robertson, DOAge/Sex: 70/F Location:[place]:Signed Intake Vital Signs 04/12/21 13:22 04/12/21 13:27 Height 5 ft 2 in Weight: 205 lb BMI 37.5 38.2 Intake Visit Reasons: Lumbar spine Is patient in pain?: Yes Pain scale (1-10): 5 Allergies Penicillins Allergy (Verified 01/27/21 10:49) Hives Medications ascorbic acid (vitamin C) 1,000 mg PO QHS 07/18/20 [History Confirmed 04/12/21] aspirin 81 mg PO QHS 07/18/20 [History Confirmed 04/12/21] calcium carbonate-vitamin D3 1 ea PO QHS 07/18/20 [History Confirmed 04/12/21] duloxetine 60 mg PO QHS 07/18/20 [History Confirmed 01/27/21] levothyroxine 75 mcg PO DAILY 07/18/20 [History Confirmed 04/12/21] melatonin-pyridoxine HCl (B6) 1 ea PO QHS 07/18/20 [History Confirmed 04/12/21] multivitamin with minerals 1 ea PO QHS 07/18/20 [History Confirmed 04/12/21] rosuvastatin 10 mg PO DAILY 07/18/20 [History Confirmed 04/12/21] tiotropium bromide 18 mcg capsule with inhalation device 1 cap INHALATION DAILY #90 inh 09/01/20 [Rx Confirmed 04/12/21] budesonide-formoterol HFA 160 mcg-4.5 mcg/actuation aerosol inhaler 2 puff INHALATION BID #3 ea 11/25/20 [Rx Confirmed 04/12/21] aripiprazole 5 mg tablet ea PO 04/12/21 [History Confirmed 04/12/21] irbesartan 75 mg tablet ea PO 04/12/21 [History Confirmed 04/12/21] metoprolol tartrate 100 mg tablet tablet PO 04/12/21 [History Confirmed 04/12/21] [facility] History (Updated 04/12/21 @ 14:[address] Kyle Robertson DO) Emphysema of lung Surgical History No pertinent past surgical history Family History (Updated 04/12/21 @ 13:40 by Diana Roblero) Sister Cancer Breast Father Hypertension Social History (Updated 01/27/21 @ 12:[address] Guillermo Griffin MD) household members: spouse Smoking Status: Light Smoker (<10/day) Tobacco: How many years used: 45 alcohol intake: current alcohol intake frequency: a few times a week what type of physical activity do you participate in: none do you feel safe at home: Yes HPI Lumbar spine Details: Parts of this documentation were recorded by a scribe, this documentation accurately reflects the service provided and the decisions made by me, Dr. Kyle Robertson DO 04/12/21 1317. BHANU RUBY is a 70 year old F new patient here today for chronic low back pain. Patient was referred by Dr. Guy Phoenix. Patient states that her low back pain was aggravated by a fall on 11/27/20. Patient fell by slipping in the bathtub and fell back on her low back, buttocks, and left leg. Patient went to her PCP after the follow-up. Patient did physical therapy but did not see much improvement. Patient had a lumbar spine MRI on 03/16/21. Patient has pain in the center of the low back with walking and left leg weakness. Patient has tried the following conservative treatments for six weeks or greater: [RICE, OTC NSAIDs, home exercises provided by a provider, corticosteroid injections and oral corticosteroids, narcotic and non-narcotic analgesic medication(s), career education teacher/dry needling/acupuncture, PT/OT. Patient has found no relief and would like to further investigate their s/s. Bhanu is a most pleasant young lady 70 years old who presents in the company of her . Her chief complaint is that of weakness in her left quadriceps mechanism. Her secondary complaint is that that she has pain there though it is improved from when it started. The other secondary complaint is that of back pain when she walks a little ways she gets a great deal of back pain if she sits down it improves this is a recurring cycle. But overall her chief complaint is the weakness of the quad mechanism and thus she has trouble going up or down stairs especially down stairs and at times it simply gives way and she has had a couple of falls because of it. It started back in November. On William's Day she fell she tried to get up from the bathtub her feet gave way and she landed really hard on her low back and buttocks. She had terrific pain at first and tremendous amount of pain in the anterior thigh at the time. He states that the pain was just insurmountable. Since then the pain has gradually improved but the weakness has gotten worse. She denies any bowel or bladder dysfunction or history of unexplained weight loss night fever sweats or chills. On examination she has marked atrophy of the left quad as compared to the right. She has a 2+ patellar reflex on the right and that completely absent patellar reflex on the left. The other muscle groups have good strength she has a 2+ Achilles reflexes bilaterally. She has no long track tract signs. Clonus is absent Babinski's are downgoing. She can stand on her toes and she can stand on her heels without a great deal of difficulty. I reviewed her MRI scan of the lumbar spine. She has a disc protrusion at L3-4 more to the left side consistent with her left-sided L4 radiculopathy and neurological deficit. She also has's much smaller protrusion at 4 5 with degeneration of both discs. I explained to Bhanu that the indications for surgery are basically to stop the progression of the muscle atrophy. How much actual strength returns is unknown perhaps some well but the way it is headed she will continue to deteriorate if the pressure is not taken off the L4 nerve. We considered EMG nerve conduction studies but it is against her wishes. She stated that if I felt confident that this is the problem which I do then she would like to simply bypass EMG nerve conduction studies and proceed with surgical intervention. We will schedule her in the not too distant future. I will see her again 1 week before surgery to answer any questions that she or her may have. Coding Level of Care Code Off vis,new,level 3 Diagnoses HNP (herniated nucleus pulposus), lumbar M51.26
[2022-01-04] VITALS (26 sets, daily range): BP systolic 114–139; BP diastolic 58–98; PULSE 67–81; RESP 14–19; TEMP 36–36.2; O2SAT 88–98; BMI 38.4
[2022-01-04] MEDS: Lactated Ringers 1,000 ML 15 ML IV (06:14)
[2022-01-04] MEDS: Acetaminophen 500 MG Tablet 1000 MG PO (06:15)
[2022-01-04 06:36] LABS: Bedside Glucose 124 mg/dL (74-106)
[2022-01-04] MEDS: Clindamycin 900 MG/50 ML BAG 75 MG IV (08:15)
--- NOTE | 2022-01-04 08:50 | PN.ORTHO_ITS ---
Subjective Subjective Mrs. Martinez was taken to the operating suite. Before she was intubated while she was still awake her O2 saturation was 87. Dr. Foss then culture we were able to get it to around 95 or 6. She was then intubated and a Soares catheter was inserted. Prior to turning the patient onto her prone position on the [place] on frame her blood pressures began dropping. This was probably due to the mag sulfate. At that point in time Dr. Foss and I made the decision to cancel the surgery wake her up and take her to recovery. I called her on his cell phone. I explained the situation to him and he understood. The first strike was her O2 saturation. The second strike was the decreasing blood pressure. We did not want a third strike. Thus the decision to cancel the case and wake her up and take her to recovery. Objective Data Objective Data Vital Signs: Vital Signs Temp Pulse Resp BP Pulse Ox 97.0 F L 67 18 137/73 H 93 01/04/22 06:04 01/04/22 06:04 01/04/22 06:04 01/04/22 06:04 01/04/22 06:04 Oxygen Delivery Method Room Air Weight: 210 lb Body Mass Index (BMI) 38.4 Intake & Output: Intake and Output for Last 24 Hours 01/02/22 01/03/22 01/04/22 23:59 23:59 23:59 Intake Total 50 / 50 Balance 50 / 50 Lab / Micro Data Result Diagrams: 12/26/21 13:22 12/26/21 13:22 Labs: Laboratory Results - last 24 hr 01/04/22 06:07: POC Glucose 124 H Micro: Microbiology 12/26/21 13:22 Swab (Method) Nasal Screen MRSA/MSSA - Final
[2022-01-04] MEDS: Ipratropium/Albuterol Sulfate 3 ML AMPUL.NEB INHALATION (09:36)
[2022-01-04 09:49] LABS: Magnesium 3.2 mg/dL (1.6-2.6)
--- NOTE | 2022-01-04 10:03 | SUR.PHASEI ---
MAG LEVEL REPORTED TO DR. TSAI. NO NEW ORDERS AT THIS TIME.
--- NOTE | 2022-01-04 10:07 | SUR.PHASEI ---
FAMILY UPDATED VIA OPERATIONS GENERAL AGENT
--- NOTE | 2022-01-04 10:53 | SUR.PHASEI ---
THIS NURSE WORKING WITH PATIENT TO USE INCENTIVE SPIROMETER. PATIENT ABLE TO ACHIEVE 500-750 ON IS. 5 BREATHS PERFORMED. WILL CONTINUE TO ATTEMPT TO WEAN OFF O2 MASK.
--- NOTE | 2022-01-04 11:20 | RAD_ITS ---
STUDY: X-RAY CHEST REASON FOR EXAM: Female, 71 years old. POST ANESTHESIA DESATURATION, LOW O2 SAT TECHNIQUE: AP and lateral views of the chest. COMPARISON: Comparison is made with prior study of 05/09/2021. FINDINGS: EKG electrodes are seen. There is hyperinflation of the lungs consistent with chronic obstructive lung disease (COPD). Increased markings at the lung bases more prominent than on prior examination suggestive of bibasilar atelectasis superimposed on scarring. There is no demonstrated pleural abnormality. Normal size heart. Normal mediastinum and anusha. Normal visualized pulmonary arteries. There is atherosclerotic calcification of the aortic arch with tortuosity. There is demineralization of the osseous structures. Normal visualized ribs, clavicles, and shoulders. There is no demonstrated abnormality of the visualized soft tissue structures of the upper abdomen. RAD/Chest PA and Lateral IMPRESSION: Hyperinflation. Increased markings at the lung bases more pronounced than on prior study suggestive of atelectasis superimposed on scarring. Electronically Signed: Luis Soler MD at 12:17 EDT ,
--- NOTE | 2022-01-04 11:35 | SUR.PHASEI ---
PATIENT ESCORTED TO XRAY FOR IMAGING. PATIENT TOLERATED WELL. RETURNED TO PACU. IS USED AGAIN. 1250 MAX ON IS X 1 THEN 800. AWAITING READ FROM RADIOLOGIST. REMAINS ON 4L SIMPLE MASK.
--- NOTE | 2022-01-04 12:38 | SUR.PHASEI ---
RESPIRATORY TO BEDSIDE TO ASSIST WITH CPAP DONNING. PATIENT TOLERATED WELL. NO S/S OF DISTRESS. PATIENT AWAKE AND ALERT. DENIES SOB.
--- NOTE | 2022-01-04 12:48 | SUR.PHASEI ---
FAMILY UPDATED WITH ARMAMENT INSTALLER
--- NOTE | 2022-01-04 13:06 | SUR.PHASEI ---
TO BEDSIDE TO VISIT. UPDATED ON STATUS. PATIENT REMAINS COMFORTABLE. NO DISTRESS. REMAINS ON CPAP. WILL TRIAL WEANING.
--- NOTE | 2022-01-04 13:14 | PCM.OPRPT ---
Report of Operation Date of Procedure: 01/04/22 Description of Surgical Findings:: Progress Note - Orthopedics Author: Kyle Robertson, undefined undefined Original Note: Subjective Subjective Mrs. Martinez was taken to the operating suite. Before she was intubated while she was still awake her O2 saturation was 87. Dr. Foss then culture we were able to get it to around 95 or 6. She was then intubated and a Soares catheter was inserted. Prior to turning the patient onto her prone position on the [place] frame her blood pressures began dropping. This was probably due to the mag sulfate. At that point in time Dr. Foss and I made the decision to cancel the surgery wake her up and take her to recovery. I called her on his cell phone. I explained the situation to him and he understood. The first strike was her O2 saturation. The second strike was the decreasing blood pressure. We did not want a third strike. Thus the decision to cancel the case and wake her up and take her to recovery. Objective Data Objective Data Vital Signs: Vital Signs Temp Pulse Resp BP Pulse Ox 97.0 F L 67 18 137/73 H 93 01/04/22 06:04
--- NOTE | 2022-01-04 14:07 | SUR.PHASEI ---
DEJUAN UPDATED VIA PHONE CALL
--- NOTE | 2022-01-04 15:12 | SUR.PHASEII ---
Patient brought to discharge from PACU after cancelled surgery. Patient stable with no complaints, aware of needed follow up. Belongings returned to patient, will get dressed and call out when ready to discharge.
== END 2022-01-04 15:18 | disposition home or self-care (01) ==
LOC: SDC 05:34 → AC 05:34
PROVIDERS: Anesthesiology; PCP Family Medicine; Referring Provider Orthopaedic Surgery; Visit Provider Orthopaedic Surgery
PROC: (CPT 63030; principal; 2022-01-04 07:00)
DX: M51.26 Other intervertebral disc displacement, lumbar region (principal); J44.9 Chronic obstructive pulmonary disease, unspecified; F17.200 Nicotine dependence, unspecified, uncomplicated; I10 Essential (primary) hypertension; Z79.899 Other long term (current) drug therapy; Z79.82 Long term (current) use of aspirin; F41.9 Anxiety disorder, unspecified; E78.00 Pure hypercholesterolemia, unspecified; F32.A Depression, unspecified; Z78.0 Asymptomatic menopausal state; E07.9 Disorder of thyroid, unspecified; G47.30 Sleep apnea, unspecified; Z53.8 Procedure and treatment not carried out for other reasons; G89.29 Other chronic pain; W18.2XXA Fall in (into) shower or empty bathtub, initial encounter; Y93.9 Activity, unspecified; Y92.9 Unspecified place or not applicable; R53.1 Weakness; M54.16 Radiculopathy, lumbar region; R03.1 Nonspecific low blood-pressure reading; R09.02 Hypoxemia
CPT/HCPCS: 63030; 00630; 36415; 71046; 80048; 82962; 83735; 84443; 85025; 86703; 86706; 86708; 86803; 87081; 93005; 94640; J7120; J2405

== ENCOUNTER 2022-01-17 14:50 | Outpatient (CLI) | payer MEDICARE, SELFPAY ==
[2022-01-17 17:45] LABS: Absolute Lymphocyte Count 2.52 X10^3/uL (0.83-4.51); Absolute Neutrophil Count 5.6 X10^3/uL (2.0-7.7); Basophil# 0.04 X10^3/uL; Basophil% 0.5 % (0-1); Eosinophil# 0.13 X10^3/uL; Eosinophils% 1.5 % (0-5); Hemoglobin 14.7 g/dL (12.0-15.0); Lymphocyte # 2.52 X10^3/ul (0.83-4.51); Lymphocyte % 28.4 % (19-41); Mean Corp Hgb Conc 32.7 g/dL (32-36); Mean Corpuscular Hgb 32.5 pg (27.0-32.0); Mean Corpuscular Volume 99.6 fL (81-99); Mean Platelet Vol. 10.5 fl (6.2-12.0); Monocyte# 0.61 X10^3/uL; Monocyte% 6.9 % (0-10); NRBC Flagged by Analyzer 0 % (0-5); Neutrophil # 5.55 X10^3/uL (2.7-7.7); Neutrophil % 62.4 % (47-70); Platelet Count 173 K/mm3 (150-450); RBC Distribution Width CV 12.7 % (11.6-14.6); Red Blood Count 4.52 M/mm3 (4.2-5.4); White Blood Count 8.9 K/mm3 (4.4-11.0)
[2022-01-17 18:05] LABS: ALB/GLOB Ratio 0.9 RATIO (0.9-2.4); AST(SGOT) 16 U/L (15-37); Alanine Aminotransfer ALT/SGPT 33 U/L (13-56); Albumin, Serum 3.3 g/dL (3.2-5.0); Alkaline Phosphatase 80 U/L (45-117); Anion Gap 3 (5-15); BUN 11 mg/dL (7-18); BUN/Creat Ratio 15.6 RATIO (10-20); Calcium,Total 8.6 mg/dL (8.5-10.1); Chloride 108 mmol/L (98-107); Cholesterol 127 mg/dL (200); EST Glomerular Filtration Rate 87 mL/min (>60); Est Glom Filt Rate - Afr Amer 105 mL/min (>60); Globulin 3.7 g/dL (2.2-4.2); Glucose 112 mg/dL (74-106); Hemoglobin A1c 6.1 % (3.8-5.6); High Density Lipoprotein 36 mg/dL; Potassium 3.8 mmol/L (3.5-5.1); Sodium Level 139 mmol/L (136-145); Triglycerides 166 mg/dL; Very Low Density Lipoprotein 33 mg/dL (5-40)
[2022-01-17 18:19] LABS: Microalbumin,Random Urine 11.3 mg/L (NO RANGE EST.); Microalbumin:Creatinine Ratio 6.6 mg/g CRE (<30 mg/g CRE)
== END 2022-01-17 23:59 | disposition home or self-care (01) ==
LOC: MFPLAB 14:51
PROVIDERS: PCP Family Medicine; Referring Provider Family Medicine; Visit Provider Family Medicine
DX: J44.9 Chronic obstructive pulmonary disease, unspecified (principal); E66.01 Morbid (severe) obesity due to excess calories; Z68.38 Body mass index [BMI] 38.0-38.9, adult; I10 Essential (primary) hypertension
CPT/HCPCS: 36415; 80053; 80061; 82043; 82570; 83036; 85025

== ENCOUNTER → 2022-10-16 | Outpatient (CLI) | payer MEDICARE, SELFPAY ==
--- NOTE | 2022-10-17 05:18 | PFTCOMP_ITS ---
COMPLETE PULMONARY FUNCTION TEST INTERPRETATION Brief HPI: Patient is a 71-year-old female, currently under the care of myself, who presents to [facility] for complete pulmonary function tests secondary to diagnosis of COPD. Respiratory therapist reports good effort and reproducible results. Interpretation: Forced expiration spirometry shows a moderate large airways obstructive ventilatory defect with an FEV1 of 68% predicted. There is no significant bronchodilator response by strict ATS criteria. Spirograms are of good quality and plateau slowly, indicating slowly emptying areas of the lungs. The respiratory flow volume loop shows decreased expiratory flow rates at all lung volumes consistent with airway obstruction. Lung volumes by body plethysmography show a normal total lung capacity at 4.97 L, 110% predicted. FRC and RV are elevated out of proportion. Lung volume measurements are consistent with hyperinflation and air-trapping. Diffusion capacity by carbon monoxide is normal at 84% predicted. The airway resistance is elevated. Compared to previous pulmonary function tests from 11/15/2020, there has been a slight improvement in air trapping, but does not reach clinical significance by ATS criteria. Impression: Irreversible moderate large airways obstructive ventilatory defect resulting in air trapping with hyperinflation
== END | disposition home or self-care (01) ==
LOC: PSN 12:55
PROVIDERS: PCP Family Medicine; Referring Provider Nurse Practitioner Acute Care; Visit Provider Nurse Practitioner Acute Care
DX: J44.9 Chronic obstructive pulmonary disease, unspecified (principal)
CPT/HCPCS: 94060; 94726; 94729

== ENCOUNTER → 2022-10-18 | Outpatient (CLI) | payer MEDICARE, SELFPAY ==
[2022-10-18 13:12] VITALS: PULSE 70; PULSE 77; PULSE 82; PULSE 84; PULSE 85; PULSE 86; PULSE 88; O2SAT 89; O2SAT 90; O2SAT 91; O2SAT 94; O2SAT 95
--- NOTE | 2022-10-18 15:01 | PCM.PSN.6M ---
PSN 6 Minute Walk Test 6 Minute Walk Test 6 Minute Walk Test: 6 Minute Walk Test PSN:6-Minute Walk Test Start: 10/18/22 13:12 Freq: Status: Active Protocol: [id number].[id number] Document 10/18/22 13:12 JOSH (Rec: 10/18/22 13:14 JOSH [id number]) 6 Minute Walk Test Date Performed 10/18/22 Time Performed 13:00 Height 5 ft 2.5 in Weight: 86.183 kg Weight in Pounds 190.[address]: Guillermo Griffin Assistive device used: None Pre-test Oxygen Delivery Method Room Air Pulse Ox (%) 94 Pulse Rate (60-100 beats/min) 70 Dyspnea Brook Scale (0-10) 0 Exertion Brook Scale (6-20) 6 1st minute Oxygen Delivery Method Room Air Pulse Ox (%) 91 Pulse Rate (60-100 beats/min) 82 2nd minute Oxygen Delivery Method Room Air Pulse Ox (%) 89 Pulse Rate (60-100 beats/min) 84 3rd minute Oxygen Delivery Method Room Air Pulse Ox (%) 90 Pulse Rate (60-100 beats/min) 85 4th minute Oxygen Delivery Method Room Air Pulse Ox (%) 89 Pulse Rate (60-100 beats/min) 85 5th minute Oxygen Delivery Method Room Air Pulse Ox (%) 91 Pulse Rate (60-100 beats/min) 86 6th minute Oxygen Delivery Method Room Air Pulse Ox (%) 89 Pulse Rate (60-100 beats/min) 88 Dyspnea Brook Scale (0-10) 2 Exertion Brook Scale (6-20) 14 Post-test Oxygen Delivery Method Room Air Pulse Ox (%) 95 Pulse Rate (60-100 beats/min) 77 Full Laps Walked 10 Partial Lap, Number of Tiles Walked 35 Total Distance Walked (ft) 625 Interpretation Interpretation: The patient was able to ambulate 625 feet over the course of 6 minutes on room air with no assistive devices or breaks. The patient did experience significant desaturation from a baseline of 94% to as low as 89%. No significant tachycardia was noted. These findings are consistent with a respiratory limitation exercise tolerance. Recommendations Recommendations: No supplemental oxygen is indicated at this time. However, patient will need to be followed closely given level of desaturation.
== END | disposition home or self-care (01) ==
PROVIDERS: PCP Family Medicine; Visit Provider Nurse Practitioner Acute Care
DX: J44.9 Chronic obstructive pulmonary disease, unspecified (principal)
CPT/HCPCS: 94618

== ENCOUNTER → 2023-01-10 | Outpatient (CLI) | payer MEDICARE, SELFPAY ==
[2023-01-10 18:03] LABS: Absolute Lymphocyte Count 2.31 X10^3/uL (0.83-4.51); Absolute Neutrophil Count 7.6 X10^3/uL (2.0-7.7); Basophil# 0.06 X10^3/uL; Basophil% 0.6 % (0-1); Eosinophil# 0.12 X10^3/uL; Eosinophils% 1.1 % (0-5); Hematocrit 47.8 % (37-47); Hemoglobin 15.8 g/dL (12.0-15.0); Lymphocyte # 2.31 X10^3/ul (0.83-4.51); Lymphocyte % 21.3 % (19-41); Mean Corp Hgb Conc 33.1 g/dL (32-36); Mean Corpuscular Hgb 32.9 pg (27.0-32.0); Mean Corpuscular Volume 99.6 fL (81-99); Mean Platelet Vol. 10.2 fl (6.2-12.0); Monocyte# 0.73 X10^3/uL; Monocyte% 6.7 % (0-10); NRBC Flagged by Analyzer 0 % (0-5); Neutrophil # 7.62 X10^3/uL (2.7-7.7); Neutrophil % 70.1 % (47-70); Platelet Count 193 K/mm3 (150-450); RBC Distribution Width CV 13.2 % (11.6-14.6); RBC Distribution Width SD 49.1 fl (35.1-43.9); White Blood Count 10.9 K/mm3 (4.4-11.0)
[2023-01-10 18:51] LABS: ALB/GLOB Ratio 0.8 RATIO (0.9-2.4); AST(SGOT) 15 U/L (15-37); Alanine Aminotransfer ALT/SGPT 29 U/L (13-56); Albumin, Serum 3.2 g/dL (3.2-5.0); Alkaline Phosphatase 85 U/L (45-117); Anion Gap 5 (5-15); BUN 9 mg/dL (7-18); BUN/Creat Ratio 12.1 RATIO (10-20); Chloride 107 mmol/L (98-107); Creatinine, Serum 0.74 mg/dL (0.55-1.02); EST Glomerular Filtration Rate 82 mL/min (>60); Est Glom Filt Rate - Afr Amer 99 mL/min (>60); Globulin 3.8 g/dL (2.2-4.2); Glucose 91 mg/dL (74-106); Potassium 3.8 mmol/L (3.5-5.1); Sodium Level 138 mmol/L (136-145); Thyroid Stim Hormone (TSH) 0.91 uIU/mL (0.358-3.74)
== END | disposition home or self-care (01) ==
LOC: MTLAB 14:09
PROVIDERS: PCP Family Medicine; Referring Provider Family Medicine; Visit Provider Family Medicine
DX: F41.9 Anxiety disorder, unspecified (principal)
CPT/HCPCS: 36415; 80053; 84443; 85025

== ENCOUNTER → 2023-07-30 | Outpatient (CLI) | payer MEDICARE, SELFPAY ==
[2023-07-30 17:34] LABS: Absolute Lymphocyte Count 3.01 X10^3/uL (0.83-4.51); Absolute Neutrophil Count 5.2 X10^3/uL (2.0-7.7); Basophil# 0.07 X10^3/uL; Basophil% 0.8 % (0-1); Eosinophil# 0.13 X10^3/uL; Eosinophils% 1.4 % (0-5); Hematocrit 48.2 % (37-47); Lymphocyte # 3.01 X10^3/ul (0.83-4.51); Mean Corp Hgb Conc 33.2 g/dL (32-36); Mean Corpuscular Hgb 32.7 pg (27.0-32.0); Mean Corpuscular Volume 98.4 fL (81-99); Mean Platelet Vol. 9.9 fl (6.2-12.0); Monocyte# 0.66 X10^3/uL; Monocyte% 7.2 % (0-10); NRBC Flagged by Analyzer 0 % (0-5); Neutrophil # 5.23 X10^3/uL (2.7-7.7); Neutrophil % 57.4 % (47-70); Platelet Count 177 K/mm3 (150-450); RBC Distribution Width CV 13.6 % (11.6-14.6); RBC Distribution Width SD 49.6 fl (35.1-43.9); White Blood Count 9.1 K/mm3 (4.4-11.0)
[2023-07-30 18:05] LABS: Microalbumin,Random Urine 7.6 mg/L (NO RANGE EST.); Microalbumin:Creatinine Ratio 6.8 mg/g CRE (<30 mg/g CRE)
[2023-07-30 18:12] LABS: ALB/GLOB Ratio 0.8 RATIO (0.9-2.4); AST(SGOT) 19 U/L (15-37); Alanine Aminotransfer ALT/SGPT 31 U/L (13-56); Albumin, Serum 3.3 g/dL (3.2-5.0); Alkaline Phosphatase 81 U/L (45-117); Anion Gap 5 (5-15); BUN 10 mg/dL (7-18); BUN/Creat Ratio 13.9 RATIO (10-20); Calcium,Total 9.4 mg/dL (8.5-10.1); Chloride 108 mmol/L (98-107); Cholesterol 133 mg/dL (200); Creatinine, Serum 0.72 mg/dL (0.55-1.02); EST Glomerular Filtration Rate 85 mL/min (>60); Est Glom Filt Rate - Afr Amer 103 mL/min (>60); Glucose 105 mg/dL (74-106); High Density Lipoprotein 45 mg/dL; Potassium 3.5 mmol/L (3.5-5.1); Protein, Total 7.3 g/dL (6.4-8.2); Sodium Level 141 mmol/L (136-145)
== END | disposition home or self-care (01) ==
LOC: MTLAB 16:16
PROVIDERS: PCP Family Medicine; Referring Provider Family Medicine; Visit Provider Family Medicine
DX: R63.4 Abnormal weight loss (principal); I10 Essential (primary) hypertension
CPT/HCPCS: 36415; 80053; 82043; 82465; 82570; 83718; 85025

== ENCOUNTER → 2023-12-12 | Outpatient (CLI) | payer MEDICARE, SELFPAY ==
--- NOTE | 2023-12-12 13:55 | CT_ITS ---
STUDY: LOW DOSE CT LUNG CANCER SCREENING REASON FOR EXAM: Female, 73 years old. smoker, 3 per day x50 years RADIATION DOSAGE (If Supplied By Facility): CTDIvol = ( 2.39 ) mGy, DLP = ( 82.80 ) mGycm TECHNIQUE: No contrast was administered. Low dose technique was utilized (average mAS-38 and kVp 120). 1.25 mm axial source images with a slice interval of 1.25-mm were reconstructed in lung windows. 2.5 mm axial source images with a slice interval of 2.5-mm were reconstructed in lung windows. 5.0 mm axial source images with a slice interval of 5.0-mm were reconstructed in soft tissue windows. COMPARISON: June 09, 2021 NODULES: No suspicious pulmonary nodules. Small calcified granuloma lateral right lower lobe. PARENCHYMA: Lungs are hyperexpanded. No airspace consolidation effusion or pneumothorax . Interval enlargement of bilateral bullous Changes, largest 7.8 x 10.2 cm in the right lower lung. Mild atelectasis in the posterior right lung base. Endobronchial lesion: No endobronchial lesion or gross peribronchial thickening. Aorta: Aortic atherosclerosis without ectasia or intramural hematoma. CORONARY ARTERIES: Moderate calcified coronary atherosclerosis. Heart: No cardiomegaly or pericardial effusion. Pulmonary artery: No main pulmonary arterial enlargement Mediastinal nodes: Scattered subcentimeter mediastinal lymph nodes, nonpathologic by size criteria and unchanged from June 09, 2021. No bulky hilar adenopathy. Other chest and abdominal findings: Unremarkable thyroid. Unremarkable esophagus. No acute finding within the upper abdomen. CT/Low Dose CT Lung Screening IMPRESSION: No suspicious pulmonary nodules. Hyperexpanded lungs with increased size of large bilateral bulla. Lung-RADS category 1 - Continue annual screening with LDCT in 12 months. IMPORTANT NOTES FOR USE: ACR Lung-RADS Version 1.1 Assessment Categories Release Date: 2018 Category: Coded 0-4 bases on nodule(s) with highest degree of suspicion. Negative screen is defined as categories 1 and 2; a positive screen is defined as categories 3 and 4. Category 3 and 4A nodules that are unchanged on interval CT should be coded as category 2, and individuals returned to screening in 12 months. Category 4X: Category 3 or 4 nodules with additional imaging findings that increase the suspicion of lung cancer, such as spiculation, GGN that doubles in size in 1 year, enlarged lymph notes, etc. Category Modifiers: S (significant finding unrelated to lung cancer) Electronically Signed: Shadi Sellers MD at 22:35 [facility] ,
--- OUTSIDE RECORDS SUMMARY | 2023-12-12 21:16 | XMS RPT_ITS | CCD ---
Author Name Unknown Address [address] [place] [address] Organization [facility] Care Team Providers Care Retail Buyer Name Role Phone KATHARINA WELLS Admitting Unavailable WELLS, KATHARINA A Primary Care Unavailable PRISCILLA, KATHARINA Chaudhry Consulting Unavailable PRISCILLA, KATHARINA A Attending Unavailable PROVIDER, UNKNOWN Consulting Unavailable MAYA, DR PRATIMA Angel Admitting Unavaila ble MAYA, DR PRATIMA Angel Primary Care Unavaila ble MAYA, DR PRATIMA Angel Attending Unavaila ble WELLS, KATHARINA A Consulting Unavailable PROVIDER, UNKNOWN Consulting Unavailable MAYA, DR PRATIMA Angel Admitting Unavaila ble MAYA, DR PRATIMA Angel Primary Care Unavaila ble MAYA, DR PRATIMA Angel Attending Unavaila ble WELLS, KATHARINA A Consulting Unavailable PROVIDER, UNKNOWN Consulting Unavailable Allergies Allergy Classification Reported Allergen(s) Allergy Type Date of Onset Reaction(s) Facility Penicillins (antibiotic) (1 source) Penicillins Drug Allergy [facility] Repository Problems Problem Classification Problem Date Documented Da te Episodic/Chronic Spondylosis; intervertebral disc disorders; other back problems (3 sources) Low back pain; Translations: [Low back pain] Onset: 01-16-2021 Episodic Encounters Encounter Date Encounter Type Care Provider Facility Start: 01-16-2021 End: 04-07-2021 ambulatory KATHARINA WELLS [facility] Start: 12-29-2020 End: 12-29-[address] PRATIMA TREJO [facility] Start: 11-17-2020 End: 11-17-[address] PRATIMA Angel MAYA [facility] Payers Date Payer Category Payer Unknown [id number] 1950 Unknown [id number] 1950 Unknown [id number] Medicare [id number] Summary Purpose Family History No Family History Records Found Advance Directives No Advanced Directives Records Found Additional Source Comments INFORMATION SOURCE (unrecogn ized section and content) FOR RECORDS PERTAINING TO PATIENTS WHO ARE OR HAVE BEEN ENROLLED IN A CHEMICAL DEPENDENCY/SUBSTANCEABUSE PROGRAM, SOME INFORMATION MAY BE OMITTED. This clinical summary was aggregated from multiple sources. Caution should be exercised in using it in the provision of clinical care. This summary normalizes information from multiple sources, and as a consequence, information in this document may materially change the coding, format and clinical context of patient data. In addition, data may be omitted in some cases. CLINICAL DECISIONS SHOULD BE BASED ON THE PRIMARY CLINICAL RECORDS. [facility]. provides no warranty or guarantee of the accuracy or completeness of information in this document.
== END | disposition home or self-care (01) ==
LOC: CT 13:53
PROVIDERS: PCP Family Medicine; Referring Provider Nurse Practitioner Acute Care; Visit Provider Nurse Practitioner Acute Care
DX: F17.210 Nicotine dependence, cigarettes, uncomplicated (principal)
CPT/HCPCS: 71271

== ENCOUNTER → 2024-02-13 | Outpatient (CLI) | payer MEDICARE, SELFPAY ==
[2024-02-13 18:18] LABS: Thyroid Stim Hormone (TSH) 2.66 uIU/mL (0.358-3.74)
== END | disposition home or self-care (01) ==
LOC: MFPLAB 14:59
PROVIDERS: Nurse Practitioner Family; PCP Family Medicine; Visit Provider Family Medicine
DX: E03.9 Hypothyroidism, unspecified (principal)
CPT/HCPCS: 36415; 84443

== ENCOUNTER → 2024-05-12 | Outpatient (CLI) | payer MEDICARE, SELFPAY ==
--- NOTE | 2024-05-12 12:03 | BI_ITS ---
MAMMOGRAPHY - BILATERAL SCREENING REASON FOR EXAM: Female, 73 years old. Routine annual screening examination. PERTINENT HISTORY: Sister with breast cancer. History of prior excisional breast biopsy. TECHNIQUE: Digital bilateral breast franci (3D mammographic acquisition) in the CC and MLO projections. 2-D mediolateral oblique (MLO) and craniocaudad (CC) views of both breasts were obtained. CAD: Full Field Digital Mammography with Computer Added Detection was performed. COMPARISON: Comparison is made with prior study dated June 14, 2020. FINDINGS: Breast Composition: There are scattered areas of fibroglandular density. There are no dominant masses or suspicious calcifications. No other significant abnormalities are identified. There has been no significant change since the prior study. BI/SCRN MAMM (CAD)W/FRANCI BILAT IMPRESSION: Stable bilateral screening mammogram. Yearly follow-up mammogram recommended. (A) ASSESSMENT CATEGORY: BIRADS Category 1: Negative. A letter regarding these results will be sent to the patient by the facility within 30 days. Approximately 10% of breast cancers are not detected by mammography. A normal mammogram should not delay biopsy of a clinically suspicious abnormality. [id number] Electronically Signed: Luis Soler MD at 13:16 EDT ,
== END | disposition home or self-care (01) ==
LOC: OPBI 12:03
PROVIDERS: PCP Family Medicine; Referring Provider Nurse Practitioner Family; Visit Provider Nurse Practitioner Family
DX: Z12.31 Encounter for screening mammogram for malignant neoplasm of breast (principal)
CPT/HCPCS: 77063; 77067

== ENCOUNTER → 2024-12-14 | Outpatient (CLI) | payer MEDICARE, SELFPAY ==
--- NOTE | 2024-12-14 13:56 | CT_ITS ---
PROCEDURE: LOW DOSE CT LUNG SCREENING REASON FOR EXAM: Current smoker. Patient has smoked 1 pack per day for 50 years. TECHNIQUE: Low Dose CT Lung Screening without contrast COMPARISON: Comparison is made with prior study dated December 12, 2023. FINDINGS: PULMONARY NODULES: (Only nodules >6mm are reported) Nodules described below are on series 1 unless otherwise specified. Pulmonary Nodules: No concerning pulmonary nodules. Hardware:None Lymph Nodes:No mediastinal hilar or axillary lymphadenopathy. Heart and Vasculature:Normal heart size. No pericardial effusion.Thoracic aorta and pulmonary arteries have normal contours; noncontrast technique limits evaluation. Coronary Artery Calcifications: Present Lungs and Airways: Advanced emphysematous changes are present. Stable large bilateral bulla formation. Stable mild atelectasis and/or scarring at the right lung base. Pleura:No pleural effusion. No pneumothorax. Upper Abdomen:Visualized portions of the upper abdominal viscera are unremarkable. Bones:Degenerative changes of the thoracic spine. Stable examination. CT/Low Dose CT Lung Screening IMPRESSION: 1. BASED ON THE ACR LUNG RADS FOR THE MOST SUSPICIOUS NODULE (IF ANY) DESCRIBE D IN THIS REPORT, THE OVERALL LUNG RADS SCORE IS 2.2 - BENIGN (BASED ON IMAGING FEATURES OR INDOLENT BEHAVIOR). RECOMMEND 12-MON TH SCREENING LDCT.. 2. SMOKING CESSATION COUNSELING IS RECOMMENDED IF THE PATIENT IS STILL SMOKING . 3. OTHER SIGNIFICANT FINDINGSNone. One or more dose reduction techniques were used (e.g., Automated exposure contr ol, adjustment of the mA and/or kV according to patient size, use of iterative reconstruction technique). The following information is provided for reference:Lung-RADS 2021 Assessment C ategories. Additional information involving Lung-RADS is available at www.acr.org. 0-INCOMPLETE 1-NEGATIVE:No nodules or definitely benign nodules. Complete, central, popcorn , or centric ring calcifications OR fat containing 2-BENIGN APPEARANCE (based on imaging features or indolent behavior). Juxtaple ural nodule: < 10mm AND solid; smooth margins; oval, entiform, or triangular shape Solid nodule: <6mm at baseline or new< 4mm Part solid Nodule: < 6mm total mean diameter at baseline Nonsolid nodule:(GGN) < 30mm OR >=30mm stable or slowly growing Airway nodule, subsegmental at baseline, new, or stable Category 3 nodule stabl e or decreased in size at 6-month follow-up CT or Category 3 or 4A nodules that resolve on follow-up OR category 4B findings prov en to be benign following diagnotic work up. 3 - Probably Benign (Based on imaging features or behavior) Solid Nodule: >= 6 to <8mm at baseline OR new 4 to <6mm Part-solid nodule: >= 6mm toal mean diam. with solid component <6mm at baseline OR new < 6mm total mean diam. Non-solid nodule: GGN >= 30mm at baseline or new Atypical pulmonary cyst: Growing cystic component (mean diam.) of thick-walled cyst Category 4A nodule stable or decreased in size at 3-month follow-up CT (excl.ai rway). 4A - Suspicious Solid nodule: >=8 to < 15mm at baseline OR growing < 8mm OR new 6 to < 8mm Part solid nodule: >= 6mm total mean diam. w/ solid component >=6mm to < 8mm at baseline OR new or growing < 4mm solid component Airway nodule, segmental or more proximal at baseline or new Atypical pulmonary cyst: Thick-walled OR multilocular at baseline OR becomes mu ltilocular 4B - Very Suspicious Airway nodule, segmental or more proximal, and stable or growing Solid nodule: >= 15mm at baseline OR new or growing >= 8mm Part solid nodule: Solid component >= 8mm OR new or growing >= 4mm solid compon ent Atypical pulmonary cyst: Thick-walled with growing wall thickness/nodularity OR Growing multilocular (mean diam.) OR Multilocular with increased loculation or new/increased opacity Slow-growing solid or part solid nodule w/ growth over multiple screening exams 4X - Very Suspicious Category 3 or 4 nodules with additional features that increase the suspicion fo r lung cancer. S - Clinically Significant or potentially significant findings (non-lung cancer ) Reading Location: [facility]
== END | disposition home or self-care (01) ==
LOC: CT 13:55
PROVIDERS: PCP Family Medicine; Referring Provider Nurse Practitioner Acute Care; Visit Provider Nurse Practitioner Acute Care
DX: Z12.2 Encounter for screening for malignant neoplasm of respiratory organs (principal); F17.210 Nicotine dependence, cigarettes, uncomplicated
CPT/HCPCS: 71271

== ENCOUNTER → 2025-02-05 | Outpatient (CLI) | payer MEDICARE, SELFPAY ==
[2025-02-05 17:48] LABS: Absolute Lymphocyte Count 2.71 X10^3/uL (0.83-4.51); Absolute Neutrophil Count 4.8 X10^3/uL (2.0-7.7); Basophil# 0.06 X10^3/uL; Basophil% 0.7 % (0-1); Eosinophil# 0.14 X10^3/uL; Eosinophils% 1.6 % (0-5); Hematocrit 44.6 % (37-47); Hemoglobin 15.2 g/dL (12.0-15.0); Lymphocyte # 2.71 X10^3/ul (0.83-4.51); Lymphocyte % 31.8 % (19-41); Mean Corp Hgb Conc 34.1 g/dL (32-36); Mean Corpuscular Hgb 32.3 pg (27.0-32.0); Mean Corpuscular Volume 94.7 fL (81-99); Mean Platelet Vol. 9.8 fl (6.2-12.0); Monocyte# 0.76 X10^3/uL; Monocyte% 8.9 % (0-10); NRBC Flagged by Analyzer 0 % (0-5); Neutrophil # 4.81 X10^3/uL (2.7-7.7); Neutrophil % 56.6 % (47-70); Platelet Count 169 K/mm3 (150-450); RBC Distribution Width CV 13.1 % (11.6-14.6); RBC Distribution Width SD 46.1 fl (35.1-43.9); Red Blood Count 4.71 M/mm3 (4.2-5.4); White Blood Count 8.5 K/mm3 (4.4-11.0)
[2025-02-05 18:25] LABS: ALB/GLOB Ratio 1.1 RATIO (0.9-2.4); AST(SGOT) 18 U/L (<=31); Alanine Aminotransfer ALT/SGPT 13 U/L (<=34); Albumin, Serum 3.8 g/dL (3.4-4.8); Alkaline Phosphatase 90 U/L (35-104); Anion Gap 9 (5-15); BUN 12 mg/dL (4-19); Calcium,Total 9.3 mg/dL (7.6-11.0); Carbon Dioxide 24.9 mmol/L (21.0-32.0); Chloride 105 mmol/L (98-108); Cholesterol 137 mg/dL (<=200); Creatinine, Serum 0.75 mg/dL (0.70-1.20); EST Glomerular Filtration Rate 84 (>60); Globulin 3.5 g/dL (2.2-4.2); Glucose 98 mg/dL (70-99); High Density Lipoprotein 38 mg/dL; Potassium 4.2 mmol/L (3.3-5.1); Protein, Total 7.3 g/dL (5.9-8.4); Sodium Level 139 mmol/L (133-145); Total Bilirubin 0.35 mg/dL (0.00-1.30)
== END | disposition home or self-care (01) ==
LOC: MFPLAB 15:42
PROVIDERS: PCP Family Medicine; Referring Provider Family Medicine; Visit Provider Family Medicine
DX: J44.89 Other specified chronic obstructive pulmonary disease (principal); E03.9 Hypothyroidism, unspecified
CPT/HCPCS: 36415; 80053; 82465; 83718; 84443; 85025